=== PATIENT | male | born 1985 | race Caucasian/White ===

== ENCOUNTER 2021-11-12 20:19 | Emergency (ER) | payer SELFPAY ==
[~2021-11-12] VITALS: Ht 177.8 cm; Wt 84.0 kg
[~2021-11-12 20:19] MED LIST: DENIES CURRENT MEDS; FLEXERIL PO; NAPROSYN500 MG OR; NAPROSYN500 MG PO; NO HOME MEDS; TYLENOL # 31 TA1 PO; ULTRAM50 M1 PO; ULTRAM50 MG OR
[2021-11-12] MEDS ORDERED: IVERMECTIN3 MG PO (20:59)
[2021-11-12] MEDS ORDERED: PERMETHRIN5 % EX (20:59)
[2021-11-12 21:26] VITALS: BP 133/88
== END 2021-11-12 21:35 | disposition home or self-care (01) | DRG 607 ==
LOC: ED 20:19
DX: B86 Scabies (principal); F17.200 Nicotine dependence, unspecified, uncomplicated